=== PATIENT | female | born 1980 ===

== ENCOUNTER 2021-06-24 06:25 | Day surgery (SDC) | payer OTHER | END 2021-06-24 11:05 | disposition home or self-care (01) | LOC: AMB-ENDOS 06:25 | PROVIDERS: ATTEND Surgery | DX: K44.9 Diaphragmatic hernia without obstruction or gangrene (principal); E66.01 Morbid (severe) obesity due to excess calories; K30 Functional dyspepsia; I10 Essential (primary) hypertension; K76.0 Fatty (change of) liver, not elsewhere classified ==